=== PATIENT | male | born 1975 | race Caucasian/White ===

== ENCOUNTER → 2018-04-06 | Outpatient (CLI) | payer BC ==
--- NOTE | 2018-04-17 10:39 | SLEEP ---
[address] [address] SLEEP STUDY REPORT Name: NORMA WHITE Room: [facility] [place] Richards#: [id number] Admission: 04/06/18 Attend Phys: Mónica Blake DO Discharge: Date of : 71 Report #: [id number] THIS REPORT FOR: //name// CC: Mónica Blake DO This study has been reviewed in its entirety by a board certified sleep specialist DATE OF SERVICE: 04/06/2018 SLEEP STUDY ATTENDING PHYSICIAN: Dr. Mónica Blake. The patient is a 42-year-old who weighs 225 pounds and is 5 feet 8 inches tall. The patient underwent home sleep study performed by [facility]. Total recording time was 456 minutes. During the night study, the patient had 1 central apnea, 12 obstructive apneas, no mixed apneas and 67 hypopneas. The patient's apnea hypopnea index was 10.5 per hour. The patient did not have supine sleep. Nocturnal oximetry study revealed an average oxygen saturation of 92% with the lowest of 83%. 63 minutes were spent at an oxygen saturation of less than 90%. Mean heart rate was 61 beats per minute. IMPRESSION: 1. Mild sleep apnea-hypopnea syndrome at an apnea-hypopnea index of 10.5 per hour. 2. Nocturnal hypoxia secondary to obstructive sleep apnea. RECOMMENDATIONS: 1. The patient has mild sleep apnea, which can be initially treated with weight loss. 2. If the patient's clinical symptoms do not improve with weight loss, then consider other treatment options such as use of an oral appliance or a trial of CPAP titration. 3. Avoid [employer] depressants. 4. Cautioned regarding driving until symptoms of sleep apnea have resolved with the above recommendations. <ELECTRONICALLY SIGNED> By: Yasmany Sanders MD 04/17/18 [id number] Sanders MD /nt
== END ==
LOC: M.SLEEPLAB 16:30
DX: G47.33 Obstructive sleep apnea (adult) (pediatric) (principal)